=== PATIENT | male | born 1980 | race African-American/Black ===

== ENCOUNTER 2021-01-16 23:29 | Emergency (ER) | payer SELFPAY ==
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
[2021-01-17] MEDS ORDERED: TETANUS & DIPHTHERIA TOX,ADULT 0.5 ML VIAL ONE (01:19)
[2021-01-17 20:35] VITALS: BP 120/80; TEMP 97.7; O2SAT 100
== END 2021-01-17 01:14 | disposition home or self-care (01) ==
LOC: ER 23:29
DX: S20.211A Contusion of right front wall of thorax, initial encounter (principal); Y04.1XXA Assault by human bite, initial encounter; Y93.89 Activity, other specified; Y92.89 Other specified places as the place of occurrence of the external cause; Y99.8 Other external cause status; Z23 Encounter for immunization
CPT/HCPCS: 90471; 90714; 99283

== ENCOUNTER 2022-07-17 10:46 | Emergency (ER) | payer OTHER, SELFPAY ==
--- OUTSIDE RECORDS SUMMARY | 2022-07-17 10:50 | XMS REPORT | Continuity of Care Document ---
:1980 Author Organization [facility] t Address [address] [place] [address] Care Team Providers Name Role Phone Physician, No Primary or Family Admitting Clinician Unavaila ble Payers Payer Name Policy Type Policy Number Effective Date Expiration Date S ource Problems This patient has no known problems. Allergies, Adverse Reactions, Alerts Allergy Allergy Status Severity Reaction(s) Onset Inactive Treating Comm ents Source Name Type Date Date Clinician No Known DA Active U 2017-0 [facility] 07-17 00:00: [address] No Known DA Active U 2017-0 [facility] All[facility]ie 07-17 00:00: [address] Medications This patient has no known medications. Procedures This patient has no known procedures. Encounters Start End Encounter Admission Attending Care Care Encounter Source Date/Time Date/Time Type Type Clinicians Facility Department ID 2019-12-19 2019-12-23 Inpatient [facility] [id number] [facility] 20:50:00 21:00:36 62 [facility] 2019-12-18 2019-12-20 Inpatient [facility] [id number] [facility] 16:21:00 06:48:24 38 [facility] Results This patient has no known results.
--- NOTE | 2022-07-17 11:50 | RAD REPORT ---
EXAM DESCRIPTION: RAD - Knee Left 3 View - 07/17/2022 11:39 am CLINICAL HISTORY: Left knee pain FINDINGS: No fracture or dislocation is seen.
--- NOTE | 2022-07-17 11:52 | RAD REPORT ---
EXAM DESCRIPTION: RAD - Knee Right 3 View - 07/17/2022 11:39 am CLINICAL HISTORY: Right knee pain status post injury FINDINGS: No fracture or dislocation is seen.
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
[2022-07-17] MEDS ORDERED: IBUPROFEN 400 MG TAB ONE (13:56)
[2022-07-18 03:28] VITALS: BP 117/72; TEMP 97.7; O2SAT 100
== END 2022-07-17 13:59 | disposition home or self-care (01) ==
LOC: ER 10:46
DX: S80.02XA Contusion of left knee, initial encounter (principal); S80.01XA Contusion of right knee, initial encounter
CPT/HCPCS: 99283